=== PATIENT | female | born 1955 | race Caucasian/White ===

== ENCOUNTER → 2021-01-19 | Outpatient (CLI) | payer OTHER ==
[~2021-01-19] MED LIST: AMLODIPINE BESYL5 MG PO; ASPIRIN CHEWABL81 MG PO; AZOR 5-40 MG T1 EACH PO; COZAAR 50MG TAB50 MG PO; CRESTOR10 MG PO; HYDROCHLOROTH12.5 M1 PO; KLONOPIN TAB 00.5 MG PO; METHOCARBAMOL500 MG PO; OMEPRAZOLE20 MG PO; OMEPRAZOLE40 MG PO; PREGABALIN150 MG PO; SERTRALINE HCL50 MG PO; SYNTHROID88 MCG PO
== END ==
LOC: KOH-I 13:30
DX: R42 Dizziness and giddiness (principal); R51.9 Headache, unspecified; R29.898 Other symptoms and signs involving the musculoskeletal system
CPT/HCPCS: 70450

== ENCOUNTER → 2021-02-06 | Outpatient (CLI) | payer OTHER | LOC: CT 14:25 | DX: R31.9 Hematuria, unspecified (principal) | CPT/HCPCS: 36415; 82565; Q9967 ==

== ENCOUNTER → 2021-03-15 | Day surgery (SDC) | payer OTHER | END | disposition home or self-care (01) | LOC: OR 06:26 | DX: R31.0 Gross hematuria (principal); R31.29 Other microscopic hematuria; Z88.5 Allergy status to narcotic agent; Z88.0 Allergy status to penicillin; F41.9 Anxiety disorder, unspecified; K21.9 Gastro-esophageal reflux disease without esophagitis; I10 Essential (primary) hypertension; E03.9 Hypothyroidism, unspecified; Z95.1 Presence of aortocoronary bypass graft; Z96.659 Presence of unspecified artificial knee joint; Z20.822 Contact with and (suspected) exposure to COVID-19; Z87.440 Personal history of urinary (tract) infections | CPT/HCPCS: J7040 ==

== ENCOUNTER → 2021-05-28 | Outpatient (CLI) | payer OTHER | LOC: EMI 05-21 09:00 | DX: G44.89 Other headache syndrome (principal); M54.81 Occipital neuralgia; R42 Dizziness and giddiness; G31.89 Other specified degenerative diseases of nervous system | CPT/HCPCS: 70551 ==

== ENCOUNTER → 2022-01-10 | Outpatient (CLI) | payer OTHER | LOC: ECHO 12:45 | DX: R01.1 Cardiac murmur, unspecified (principal); I10 Essential (primary) hypertension | CPT/HCPCS: ECHO; 93306 ==

== ENCOUNTER → 2022-01-31 | Outpatient (CLI) | payer OTHER | LOC: LAB 12:15 | DX: R06.02 Shortness of breath (principal) | CPT/HCPCS: 36415; 71046; 85379 ==

== ENCOUNTER → 2022-01-31 | Outpatient (CLI) | payer OTHER | LOC: CT 14:45 | DX: R06.02 Shortness of breath (principal); R79.89 Other specified abnormal findings of blood chemistry; U09.9 Post COVID-19 condition, unspecified | CPT/HCPCS: 71275; 82565; 84520; Q9967 ==

== ENCOUNTER 2022-03-11 13:43 | Emergency (ER) | payer OTHER ==
[2022-03-11] MEDS ORDERED: HYDROCODON-ACE1 EAC4 PO (14:32)
== END 2022-03-11 18:30 | disposition home or self-care (01) ==
LOC: ER1 13:43
DX: S42.211A Unspecified displaced fracture of surgical neck of right humerus, initial encounter for closed fracture (principal); I10 Essential (primary) hypertension; W01.0XXA Fall on same level from slipping, tripping and stumbling without subsequent striking against object, initial encounter; Y92.009 Unspecified place in unspecified non-institutional (private) residence as the place of occurrence of the external cause
CPT/HCPCS: 73030; 73200; 96374; 96376; 99284; J2270